=== PATIENT | female | born 1990 | race African-American/Black ===

== ENCOUNTER 2016-06-12 20:16 | Emergency (ER) | payer OTHER ==
[~2016-06-12] VITALS: Ht 162.6 cm; Wt 65.0 kg
[~2016-06-12 20:16] MED LIST: FERR325T PO; LABE100 PO
[2016-06-12 20:21] VITALS: BP 136/71; PULSE 102; RESP 16; TEMP 100.1; O2SAT 100
--- NOTE | 2016-06-12 20:32 | PD ---
Physical Exam Time Seen by Provider: 20:28 Narrative 26yp F c/o R lower toothpain x 2days w/ onset of R sided facial swelling today. Denies difficulty swallowing or airway edema. Reports vomiting twice today. Richard fever at home, but has fever 100.1 in ER. Patient stable. Patient seen in triage. Awaiting bed placement. Data Data Last Documented VS Vital Signs Date Time Temp Pulse Resp B/P Pulse Ox O2 Delivery O2 Flow Rate FiO2 06/12/16 20:21 100.1 102 16 136/71 100 Room Air MDM Supervised Visit with MONICA: Agnes Iniguez Jun 12, 2016 20:32
[2016-06-12] MEDS ORDERED: SODIUM CHLOR 0.9% 1000 ML INJ 1,000 ML IV SCH (21:31)
[2016-06-12 21:34] VITALS: BP 142/80; PULSE 79; RESP 16; TEMP 99.7; O2SAT 100
--- NOTE | 2016-06-12 21:41 | PD ---
HPI Chief Complaint: Oral / Dental Pain or Problem Time Seen by Provider: 21:37 Travel History International Travel<30 days: No Contact w/Intl Traveler<30days: No Traveled to known affect area: No History of Present Illness HPI Patient comes in complaining of right-sided dental pain that began 2 days ago patient reports swelling that began earlier this evening. Patient states she is able to swallow her own saliva and denies any difficulty breathing. Patient describes pain is throbbing aching pain that radiates throughout the right side of her face. Patient's been taking ibuprofen and Tylenol for the pain with minimal relief over the past couple of days. Touching it makes the pain worse. Denies any fevers, chest pain, shortness of breath, headaches, or . Patient reports she did vomit earlier tonight times one episode. PFSH Past Medical History Hx Anticoagulant Therapy: No Cardiovascular Problems: No Chemotherapy: No Cerebrovascular Accident: No Diabetes: No Diminished Hearing: No Headaches: Yes Respiratory: No Immunizations Current: Yes Migraines: Yes Sickle Cell Disease: Yes (TRAIT) ?: Not LMP: 05/14/16 : 3 Para: 0 Miscarriage: 1 : 1 Past Surgical History Surgical History: No Previous Surgery Section: Yes (november 2015) Hysterectomy: No Other Surgery: Yes (breast biopsy/ RT BREAST BENIGN CYST 2010) Social History Alcohol Use: No Tobacco Use: No (stopped with ) Substance Use: No Allergies-Medications (Allergen,Severity, Reaction): Coded Allergies: Chocolate (Verified Allergy, Severe, Shortness of Breath, 06/12/16) Reported Meds & Prescriptions Reported Meds & Active Scripts Active Ibuprofen 800 Mg Tab 800 Mg PO Q8H PRN Clindamycin (Clindamycin HCl) 150 Mg Cap 2 Tab PO Q6H 10 Days Review of Systems Except as stated in HPI: all other systems reviewed are Neg Physical Exam Narrative GENERAL: Well-developed, well nourished, in no acute distress, and non-ill appearing. SKIN: Focused skin assessment warm and dry. HEAD: Atraumatic. Normocephalic. EYES: Pupils equal and round. EOMI. No scleral icterus. No injection or drainage. ENT: No nasal bleeding or discharge. Mucous membranes pink and moist. Patient reports tenderness over tooth #29 that is loose. There is no visible or palpable abscess. There is soft tissue swelling right lower jaw is tender to palpation. There is no induration or fluctuation noted. Floor of the mouth, submandibular, and submental are all soft palpation. Uvula is midline. Patient is able swallow her own saliva and speaking in full sentences without difficulty. NECK: Trachea midline. No cervical lymphadenopathy. Supple. No nuclear rigidity. CARDIOVASCULAR: Regular rate and rhythm. No murmur appreciated. RESPIRATORY: No accessory muscle use. No respiratory distress. Clear to auscultation. Breath sounds equal bilaterally. MUSCULOSKELETAL: No obvious deformities. No clubbing. No cyanosis. No edema. Full range of motion. NEUROLOGICAL: Awake and alert. No obvious cranial nerve deficits. Motor grossly within normal limits. Normal speech. PSYCHIATRIC: Appropriate mood and affect; insight and judgment normal. Data Data Last Documented VS Vital Signs Date Time Temp Pulse Resp B/P Pulse Ox O2 Delivery O2 Flow Rate FiO2 06/12/16 21:34 99.7 79 16 142/80 100 Room Air Orders Basic Metabolic Panel (Bmp) (06/12/16 21:31) Complete Blood Count With Diff (06/12/16 21:31) Prothrombin Time / Inr (Pt) (06/12/16 21:31) Act Partial Throm Time (Ptt) (06/12/16 21:31) Iv Access Insert/Monitor (06/12/16 21:31) Ecg Monitoring (06/12/16 21:31) Oximetry (06/12/16 21:31) Morphine Inj (Morphine Inj) (06/12/16 21:45) Ondansetron Inj (Zofran Inj) (06/12/16 21:45) Sodium Chlor 0.9% 1000 Ml Inj (Ns 1000 M (06/12/16 21:31) Sodium Chloride 0.9% Flush (Ns Flush) (06/12/16 21:45) Ampicillin-Sulbactam Inj (Unasyn Inj) (06/12/16 21:45) Dexamethasone Inj (Decadron Inj) (06/12/16 21:45) Ct Soft Tiss Neck W Iv Cont (06/12/16 ) Iohexol 350 Inj (Omnipaque 350 Inj) (06/12/16 21:55) Acetamin-Hydrocod 325-5 Mg ([place] 5-325 (06/12/16 23:15) Labs Laboratory Tests Test 06/12/16 21:35 White Blood Count 18.8 TH/MM3 Red Blood Count 4.54 MIL/MM3 Hemoglobin 11.5 GM/DL Hematocrit 33.4 % Mean Corpuscular Volume 73.6 FL Mean Corpuscular Hemoglobin 25.4 PG Mean Corpuscular Hemoglobin 34.5 % Concent Red Cell Distribution Width 18.4 % Platelet Count 253 TH/MM3 Mean Platelet Volume 8.8 FL Neutrophils (%) (Auto) 88.0 % Lymphocytes (%) (Auto) 5.3 % Monocytes (%) (Auto) 6.1 % Eosinophils (%) (Auto) 0.0 % Basophils (%) (Auto) 0.6 % Neutrophils # (Auto) 16.5 TH/MM3 Lymphocytes # (Auto) 1.0 TH/MM3 Monocytes # (Auto) 1.1 TH/MM3 Eosinophils # (Auto) 0.0 TH/MM3 Basophils # (Auto) 0.1 TH/MM3 CBC Comment DIFF FINAL Differential Comment Prothrombin Time 11.8 SEC Prothromb Time International 1.1 RATIO Ratio Activated Partial 30.6 SEC Thromboplast Time Sodium Level 137 MEQ/L Potassium Level 3.5 MEQ/L Chloride Level 102 MEQ/L Carbon Dioxide Level 25.6 MEQ/L Anion Gap 9 MEQ/L Blood Urea Nitrogen 10 MG/DL Creatinine 0.75 MG/DL Estimat Glomerular Filtration 115 ML/MIN Rate Random Glucose 94 MG/DL Calcium Level 8.9 MG/DL MDM Medical Decision Making Medical Screen Exam Complete: Yes Emergency Medical Condition: Yes Differential Diagnosis Dental abscess, dental infection, facial cellulitis, Baltazar's angina, other Narrative Course 1035 patient reassessed states symptoms have improved and she was feeling better. Patient denies any progression of symptoms. Patient reports she still able to swallow her own saliva and denies any difficulty breathing. Patient is comfortable being discharged home. The patient presented with dental pain. There is no fever. There is poor dentition but no evidence of drainable abscess at this time. There is no evidence of significant deep or invading abscess at this time. The patient will be placed on antibiotics and pain medication. The patient was instructed to follow up with a dentist. The patient was given the dental referral sheet. Warnings were discussed with the patient regarding worsening of infection. The patient is to return if pain worsens, develops progressive swelling or facial redness or fever. The patient agrees with plan. Patient in no obvious distress upon re-evaluation. All pertinent laboratory/ Radiology result(s) discussed with patient. Discussed patient with Dr. Rowe prior to discharge, who saw and evaluated the patient and is in agreement with plan of care and disposition. Any questions/concerns in reference to patient diagnosis/condition discussed and clarified prior to patient's discharge. Reinforced sheer importance of close follow up with patient's primary physician or primary care clinic and dentist. Instructed patient to return to ED immediately, if symptoms return/worsen. Pt showed understanding of above instructions. Further instructions and recommendations were detailed in discharge paperwork. Pt ambulated without difficulty out of ED at discharge. Diagnosis Primary Impression: Dental infection Referrals: Dentist Primary Care Physician Patient Instructions: Dental Abscess (ED), Dental Caries (ED), General Instructions Additional Instructions: Follow up here in 24 hours if symptoms are not improving. Return sooner if symptoms get worse, develop fever, difficulty swallowing, sensation of throat closing, difficulty breathing, or for other concerns Follow-up with your primary care physician and dentist as soon as possible. Rinse mouth with warm salt water gargles. Take all medication as prescribed. Return to the emergency department if symptoms get worse. Med/Other Pt SpecificInfo: Prescription(s) given Scripts Ibuprofen 800 Mg [id number] Mg PO Q8H PRN (PAIN SCALE 1 TO 10) #30 TAB Ref 0 Prov:Conchis Rowe MD 06/12/16 Clindamycin 150 Mg Cap2 Tab PO Q6H 10 Days Ref 0 Prov:Conchis Rowe MD 06/12/16 Disposition: 01 DISCHARGE HOME Condition: Stable Michael Li Jun 12, 2016 21:41
[2016-06-12] MEDS ORDERED: AMPICILLIN-SULBACTAM INJ 3 GM in SODIUM CHLORIDE 0.9% INJ 100 ML IV ONE (21:45)
[2016-06-12] MEDS ORDERED: SODIUM CHLORIDE 0.9% FLUSH 10 ML FLUSH IV FLUSH PRN (21:45)
[2016-06-12] MEDS ORDERED: MORPHINE SULFATE 4 MG/ML INJ IV PUSH ONE (21:45)
[2016-06-12] MEDS ORDERED: ONDANSETRON HCL 4 MG/2 ML VIAL IVP ONE (21:45)
[2016-06-12] MEDS ORDERED: DEXAMETHASONE SOD PHOS 20 MG/5 ML VIAL IV PUSH ONE (21:45)
[2016-06-12] MEDS ORDERED: IOHEXOL 350 MG/ML 10 ML VIAL (for RAD DIAG) IV ONE (21:55)
[2016-06-12 22:11] LABS: AUTOMATED NEUTROPHIL # 16.5 TH/MM3 (1.8-7.7); BASOPHIL # 0.1 TH/MM3 (0-0.2); BASOPHIL % 0.6 % (0.0-2.0); HEMATOCRIT 33.4 % (35.0-46.0); HEMO FLAGS DIFF FINAL; LYMPH % 5.3 % (9.0-44.0); MEAN CELL VOLUME 73.6 FL (80.0-100.0); MEAN CORPUSCULAR HEMOGLOBIN 25.4 PG (27.0-34.0); MEAN CORPUSCULAR HGB CONC 34.5 % (32.0-36.0); MONO % 6.1 % (0.0-8.0); PLATELET COUNT 253 TH/MM3 (150-450); RED BLOOD COUNT 4.54 MIL/MM3 (4.00-5.30); RED CELL DISTRIBUTION WIDTH 18.4 % (11.6-17.2); WHITE BLOOD COUNT 18.8 TH/MM3 (4.0-11.0)
--- NOTE | 2016-06-12 22:12 | RADRPT ---
EXAM DATE/TIME: 06/12/2016 21:45 [facility] COMPARISON: No previous studies available for comparison. INDICATIONS : Tooth pain with right jaw swelling and fever. IV CONTRAST: 69 cc Omnipaque 350 (iohexol) IV RADIATION DOSE: 13.60 CTDIvol (mGy) MEDICAL HISTORY : None SURGICAL HISTORY : section. ENCOUNTER: Initial ACUITY: 2 days PAIN SCALE: 8/10 LOCATION: Right facial TECHNIQUE: Volumetric scanning of the neck was performed. Using automated exposure control and adjustment of th e mA and/or kV according to patient size, radiation dose was kept as low as reasonably achievable to obtain optimal diagnostic quality images. FINDINGS: Nasopharynx, oropharynx, hypopharynx and lower zone unremarkable. Thyroid unremarkable. The parotid a nd submandibular glands are normal in appearance. Visualized lungs are clear. Mastoid air cells and p aranasal sinuses are well aerated. There are no fractures. No destructive osseous lesions are seen. T here is streak artifact from dental hardware. There are small periapical cysts involving the first ri ght mandibular molar. There is extensive subcutaneous stranding and edema of the right lateral facial soft tissues lateral to the mandible. No organized fluid collections are seen to suggest abscess at this time. There is reactive adenopathy in the submandibular region. CONCLUSION: Extensive inflammatory changes seen along the right mandible without focal abscess in the soft tissue s. Dental disease. Dimitris Lewis MD on June 12, 2016 at 22:06 Board Certified Radiologist. This report was verified electronically.
[2016-06-12 22:23] LABS: APTT (PATIENT) 30.6 SEC (24.3-30.1); INTERNATIONAL NORMALIZED RATIO 1.1 RATIO; PROTHROMBIN TIME - PATIENT 11.8 SEC (9.8-11.6)
[2016-06-12 22:30] LABS: BICARBONATE 25.6 MEQ/L (21.0-32.0); POTASSIUM 3.5 MEQ/L (3.5-5.1)
[2016-06-12] MEDS ORDERED: CLIN1CAP5 PO (22:39)
[2016-06-12] MEDS ORDERED: IBUP800T23 PO (22:39)
--- NOTE | 2016-06-12 23:00 | PD ---
Physical Exam Narrative General: The patient is a well-developed well-nourished female in no acute distress. Head and Neck exam: Head is normocephalic atraumatic. Eyes: EOMI, pupils are equal round and reactive to light. Nose: Midline septum with pink mucous membranes Mouth: Dentition is remarkable for dental decay, gingival inflammation and edema surrounding teeth along the right mandible. Moist mucus membranes. Posterior oropharynx is not erythematous. No tonsillar hypertrophy. Uvula midline. Airway patent. No swelling noted underneath the tongue. Neck: The submandibular area is swollen, tender to palpation. No nuchal rigidity. No thyromegaly. Cardiovascular: Regular rate and rhythm without murmurs, gallops, or rubs. Lungs: Clear to auscultation bilaterally. No wheezes, rhonchi, or rales. Abdomen: Soft, without tenderness to palpation in all 4 quadrants of the abdomen. No guarding, rebound, or rigidity. Extremities: No clubbing, cyanosis, or edema. Data Data Last Documented VS Vital Signs Date Time Temp Pulse Resp B/P Pulse Ox O2 Delivery O2 Flow Rate FiO2 06/12/16 21:34 99.7 79 16 142/80 100 Room Air Orders Basic Metabolic Panel (Bmp) (06/12/16 21:31) Complete Blood Count With Diff (06/12/16 21:31) Prothrombin Time / Inr (Pt) (06/12/16 21:31) Act Partial Throm Time (Ptt) (06/12/16 21:31) Iv Access Insert/Monitor (06/12/16 21:31) Ecg Monitoring (06/12/16 21:31) Oximetry (06/12/16 21:31) Morphine Inj (Morphine Inj) (06/12/16 21:45) Ondansetron Inj (Zofran Inj) (06/12/16 21:45) Sodium Chlor 0.9% 1000 Ml Inj (Ns 1000 M (06/12/16 21:31) Sodium Chloride 0.9% Flush (Ns Flush) (06/12/16 21:45) Ampicillin-Sulbactam Inj (Unasyn Inj) (06/12/16 21:45) Dexamethasone Inj (Decadron Inj) (06/12/16 21:45) Ct Soft Tiss Neck W Iv Cont (06/12/16 ) Iohexol 350 Inj (Omnipaque 350 Inj) (06/12/16 21:55) Labs Laboratory Tests Test 06/12/16 21:35 White Blood Count 18.8 TH/MM3 Red Blood Count 4.54 MIL/MM3 Hemoglobin 11.5 GM/DL Hematocrit 33.4 % Mean Corpuscular Volume 73.6 FL Mean Corpuscular Hemoglobin 25.4 PG Mean Corpuscular Hemoglobin 34.5 % Concent Red Cell Distribution Width 18.4 % Platelet Count 253 TH/MM3 Mean Platelet Volume 8.8 FL Neutrophils (%) (Auto) 88.0 % Lymphocytes (%) (Auto) 5.3 % Monocytes (%) (Auto) 6.1 % Eosinophils (%) (Auto) 0.0 % Basophils (%) (Auto) 0.6 % Neutrophils # (Auto) 16.5 TH/MM3 Lymphocytes # (Auto) 1.0 TH/MM3 Monocytes # (Auto) 1.1 TH/MM3 Eosinophils # (Auto) 0.0 TH/MM3 Basophils # (Auto) 0.1 TH/MM3 CBC Comment DIFF FINAL Differential Comment Prothrombin Time 11.8 SEC Prothromb Time International 1.1 RATIO Ratio Activated Partial 30.6 SEC Thromboplast Time Sodium Level 137 MEQ/L Potassium Level 3.5 MEQ/L Chloride Level 102 MEQ/L Carbon Dioxide Level 25.6 MEQ/L Anion Gap 9 MEQ/L Blood Urea Nitrogen 10 MG/DL Creatinine 0.75 MG/DL Estimat Glomerular Filtration 115 ML/MIN Rate Random Glucose 94 MG/DL Calcium Level 8.9 MG/DL [facility] Medical Record Reviewed: Yes Supervised Visit with MONICA: No Narrative Course I, Dr. Rowe, have reviewed the advance practice practitioner's documentation and am in agreement, met with the patient face to face, made the diagnosis, and the medical decision making was done by me. The patient was initially evaluated by Michael. Please see his complete history and physical *My assessment and Findings: The patient is a 26-year-old female who presents to [facility] emergency Department with a history of pain along the teeth involving the right lower jaw that began a few days ago. She reports that since yesterday she developed swelling along that side. She reports that she did make an appointment with the [facility] dentist for tomorrow, however the pain became more severe and she decided to come to the emergency department for treatment. The patient's examination is remarkable for swelling along the right submandibular area, gingival inflammation and edema along the right mandible with some decay of a right mandibular molar noted. The patient had blood work sent for analysis, IV access was obtained and the patient was given Decadron and Unasyn. The patient on reexamination reportedly was feeling improved. CT scan of the neck showed extensive soft tissue swelling and inflammation along the right mandible with dental decay, no denise abscess formation. The patient was instructed regarding the importance of following up with the dentist tomorrow as previously scheduled. The patient will be discharged home with a prescription for pain medication and antibiotic. Diagnosis Primary Impression: Dental infection Referrals: Dentist 1 day Primary Care Physician Patient Instructions: General Instructions, Dental Abscess (ED), Dental Caries (ED) Departure Forms: Tests/Procedures Additional Instruction: Follow up here in 24 hours if symptoms are not improving. Return sooner if symptoms get worse, develop fever, difficulty swallowing, sensation of throat closing, difficulty breathing, or for other concerns Follow-up with your primary care physician and dentist as soon as possible. Rinse mouth with warm salt water gargles. Take all medication as prescribed. Return to the emergency department if symptoms get worse. Scripts Ibuprofen 800 Mg [id number] Mg PO Q8H PRN (PAIN SCALE 1 TO 10) #30 TAB Ref 0 Prov:Conchis Rowe MD 06/12/16 Clindamycin 150 Mg Cap2 Tab PO Q6H 10 Days Ref 0 Prov:Conchis Rowe MD 06/12/16 Disposition: 01 DISCHARGE HOME Condition: Stable Conchis Rowe MD Jun 12, 2016 23:00
[2016-06-12] MEDS ORDERED: ACETAMINOPHEN/HYDROcodone 325 MG/5 MG TAB PO ONE (23:15)
== END 2016-06-12 23:20 | disposition home or self-care (01) ==
LOC: NEPC 20:16
DX: K04.7 Periapical abscess without sinus (principal)
CPT/HCPCS: 70491; 80048; 85025; 85610; 85730; 96365; 96375; 99283; J0295; J1100; J2270; J2405; J7030; Q9967

== ENCOUNTER 2016-09-15 10:36 | Emergency (ER) | payer OTHER ==
[~2016-09-15] VITALS: Ht 162.6 cm; Wt 65.0 kg
[~2016-09-15 10:36] MED LIST changes: +CLIN1CAP5 PO; -FERR325T PO; +IBUP800T23 PO; -LABE100 PO
[2016-09-15 10:39] VITALS: BP 143/67; PULSE 63; RESP 20; TEMP 98.1; O2SAT 100
--- NOTE | 2016-09-15 10:52 | PD ---
HPI Chief Complaint: Flank/Kidney Pain Time Seen by Provider: 10:52 Travel History International Travel<30 days: No Contact w/Intl Traveler<30days: No Traveled to known affect area: No History of Present Illness HPI 26-year-old female came to the emergency room with history of pelvic pain for past 3 days. Patient initially thought this was her gas pain which she frequently gets. However when it did not get better and today has been worse she decided to come to the emergency room. She does look uncomfortable. Vital signs are otherwise stable. No history of nausea vomiting. No history of fever or chills. No history of vaginal discharge as per the patient. No history of dysuria. PFSH Past Medical History Narrative Medical List of her past medical, surgical, social and family history is reviewed from the nursing note. Hx Anticoagulant Therapy: No Cardiovascular Problems: No Chemotherapy: No Cerebrovascular Accident: No Diabetes: No Diminished Hearing: No Headaches: Yes Respiratory: No Immunizations Current: Yes Migraines: Yes Sickle Cell Disease: Yes (TRAIT) ?: Not LMP: 09/09/16 : 3 Para: 0 Miscarriage: 1 : 1 Past Surgical History Section: Yes (november 2015) Hysterectomy: No Other Surgery: Yes (breast biopsy/ RT BREAST BENIGN CYST 2010) Social History Alcohol Use: No Tobacco Use: No (stopped with ) Substance Use: No Allergies-Medications (Allergen,Severity, Reaction): Coded Allergies: Chocolate (Verified Allergy, Severe, Shortness of Breath, 09/15/16) Comments List of her allergies reviewed from the nursing note. Reported Meds & Prescriptions Reported Meds & Active Scripts Active Macrobid (Nitrofurantoin Monoh/Nitrofur Macro) 100 Mg Cap 100 Mg PO BID 10 Days Flagyl (Metronidazole) 250 Mg Tab 250 Mg PO TID 7 Days Narrative Medication List of her home medications reviewed from the nursing note. Review of Systems Except as stated in HPI: all other systems reviewed are Neg Physical Exam Narrative GENERAL: Awake, alert, comfortable SKIN: Focused skin assessment warm/dry. HEAD: Atraumatic. Normocephalic. EYES: Pupils equal and round. No scleral icterus. No injection or drainage. ENT: No nasal bleeding or discharge. Mucous membranes pink and moist. NECK: Trachea midline. No JVD. CARDIOVASCULAR: Regular rate and rhythm. No murmur appreciated. RESPIRATORY: No accessory muscle use. Clear to auscultation. Breath sounds equal bilaterally. GASTROINTESTINAL: Abdomen soft, pelvic and bilateral adnexal tenderness, nondistended. Hepatic and splenic margins not palpable. : External inspection was within normal limit. Pelvic exam performed with speculum showed yellowish discharge that was not foul-smelling. Swabs were collected. Patient had positive CMT and right adnexal tenderness. MUSCULOSKELETAL: No obvious deformities. No clubbing. No cyanosis. No edema. NEUROLOGICAL: Awake and alert. No obvious cranial nerve deficits. Motor grossly within normal limits. Normal speech. PSYCHIATRIC: Appropriate mood and affect; insight and judgment normal. Data Data Last Documented VS Vital Signs Date Time Temp Pulse Resp B/P Pulse Ox O2 Delivery O2 Flow Rate FiO2 09/15/16 13:24 67 18 128/62 99 09/15/16 10:39 98.1 Room Air Orders Gc And Chlamydia Pcr (09/15/16 11:02) Wet Prep Profile (09/15/16 11:02) Ua Includes Microscopic (09/15/16 11:02) Ed Urine Pregnancytest Poc (09/15/16 11:02) Ibuprofen (Motrin) (09/15/16 11:15) Nitrofurantoin Monohyd Macrocr (Macrobid (09/15/16 11:45) Metronidazole (Flagyl) (09/15/16 12:00) Azithromycin Powd Pack (Zithromax Powd P (09/15/16 12:00) Ceftriaxone Inj (Rocephin Inj) (09/15/16 12:00) Lidocaine 1% Inj (Xylocaine 1% Inj) (09/15/16 12:15) Labs Laboratory Tests Test 09/15/16 09/15/16 11:00 11:50 Urine Color YELLOW Urine Turbidity HAZY Urine pH 6.0 Urine Specific [place] 1.025 Urine Protein TRACE mg/dL Urine Glucose (UA) NEG mg/dL Urine Ketones NEG mg/dL Urine Occult Blood NEG Urine Nitrite NEG Urine Bilirubin NEG Urine Urobilinogen LESS THAN 2.0 MG/DL Urine Leukocyte Esterase LARGE Urine RBC 6 /hpf Urine WBC 117 /hpf Urine Squamous Epithelial 7 /hpf Cells Urine Bacteria MOD /hpf Urine Mucus FEW /lpf Microscopic Urinalysis Comment Clue Cells (Wet Prep) NONE SEEN Vaginal Trichomonas (Wet Prep) NONE SEEN Vaginal Yeast (Wet Prep) NONE SEEN Chlamydia trachomatis DNA NOT DETECTED (PCR) Neisseria gonorrhoeae DNA NOT DETECTED (PCR) MDM Medical Decision Making Medical Screen Exam Complete: Yes Emergency Medical Condition: Yes Medical Record Reviewed: Yes Differential Diagnosis PID, cystitis Narrative Course 12:02 PM patient was given Macrobid for her UTI. I also gave her IM ceftriaxone and by mouth Flagyl and by mouth Zithromax for the PID. Patient will go home on prescription. She understands the instructions that I have given to her. Procedures EKG Prior to Arrival: No Diagnosis Primary Impression: UTI (urinary tract infection) Qualified Code: N39.0 - Urinary tract infection without hematuria, site unspecified Additional Impression: PID (acute pelvic inflammatory disease) Referrals: Primary Care Physician Additional Instructions: Please follow-up with your primary care if the symptoms do not get better after completion of treatment. Return to the ER if the condition worsens. Take the medications as per the prescription direction. You will receive a phone call if your pelvic cultures were positive for GC and/or chlamydia. In which case her partner will need to be treated as well. No unprotected intercourse for next 3 weeks. You can take [id number] Motrin/Tylenol/Advil/ibuprofen for your pain. Med/Other Pt SpecificInfo: Prescription(s) given Scripts Nitrofurantoin Monohydrate Macrocrystals (Macrobid)100 Mg [id number] Mg PO BID 10 Days Ref 0 Prov:David Reynoso MD 09/15/16 Metronidazole (Flagyl)250 Mg [id number] Mg PO TID 7 Days Ref 0 Prov:David Reynoso MD 09/15/16 Disposition: 01 DISCHARGE HOME Condition: Stable David Reynoso MD Sep 15, 2016 10:52
[2016-09-15] MEDS ORDERED: IBUPROFEN 600 MG TAB PO ONE (11:15)
[2016-09-15 11:38] LABS: BACTERIA, URINE MOD /hpf; BLOOD, URINE NEG (NEG); GLUCOSE,URINE NEG (NEG); KETONE, URINE NEG (NEG); MUCUS URINE FEW /lpf (OCC); NITRITE,URINE NEG (NEG); SQUAMOUS EPITHELIAL CELL URINE 7 /hpf (0-5); URINE COLOR YELLOW (YELLW/STRAW)
[2016-09-15] MEDS ORDERED: NITROFURANTOIN MONOHYD MACROCR 100 MG CAP PO ONE (11:45)
[2016-09-15] MEDS ORDERED: METR250 PO (11:58)
[2016-09-15] MEDS ORDERED: MACR100C2 PO (11:58)
[2016-09-15] MEDS ORDERED: cefTRIAXone 250 MG VIAL IM ONE (12:00)
[2016-09-15] MEDS ORDERED: metroNIDAZOLE 500 MG TAB PO ONE (12:00)
[2016-09-15] MEDS ORDERED: AZITHROMYCIN PWD FOR SUSP 1 GM PACKET PO ONE (12:00)
[2016-09-15] MEDS ORDERED: LIDOCAINE HCL 1% 30 ML VIAL INFIL ONE (12:15)
[2016-09-15 13:24] VITALS: BP 128/62
[2016-09-15 14:20] LABS: CHLAMYDIA PCR NOT DETECTED (NOT DETECT); NEISSERIA PCR NOT DETECTED (NOT DETECT)
== END 2016-09-15 13:24 | disposition home or self-care (01) ==
LOC: NEPD 10:36
DX: N39.0 Urinary tract infection, site not specified (principal); N73.0 Acute parametritis and pelvic cellulitis
CPT/HCPCS: 81001; 84703; 87210; 87491; 87591; 96372; 99284; J0696

== ENCOUNTER 2017-01-26 09:58 | Emergency (ER) | payer OTHER ==
[~2017-01-26] VITALS: Ht 165.1 cm; Wt 61.4 kg
[~2017-01-26 09:58] MED LIST changes: -CLIN1CAP5 PO; -IBUP800T23 PO; +MACR100C2 PO; +METR250 PO
[2017-01-26 10:02] VITALS: BP 142/71; PULSE 77; RESP 16; TEMP 98.9; O2SAT 100
[2017-01-26] MEDS ORDERED: KETOROLAC TROMETHAMINE 30 MG/ML (IVP) VIAL IV PUSH ONE (10:45)
[2017-01-26] MEDS ORDERED: PROCHLORPERAZINE INJ 10 MG/2 ML VIAL IV PUSH ONE (10:45)
[2017-01-26] MEDS ORDERED: SODIUM CHLOR 0.9% 1000 ML INJ 1,000 ML IV ONE (10:45)
[2017-01-26] MEDS ORDERED: diphenhydrAMINE HCL 50 MG/ML VIAL IV PUSH ONE (10:45)
[2017-01-26 11:03] LABS: AUTOMATED NEUTROPHIL # 6.6 TH/MM3 (1.8-7.7); BASOPHIL # 0.2 TH/MM3 (0-0.2); BASOPHIL % 2.7 % (0.0-2.0); EOSINOPHIL % 0.2 % (0.0-4.0); HEMATOCRIT 34.1 % (35.0-46.0); HEMO FLAGS DIFF FINAL; LYMPHOCYTE # 1.3 TH/MM3 (1.0-4.8); MEAN CELL VOLUME 79.3 FL (80.0-100.0); MEAN CORPUSCULAR HEMOGLOBIN 25.4 PG (27.0-34.0); MONO % 6.2 % (0.0-8.0); NEUT % 75.9 % (16.0-70.0); PLATELET COUNT 288 TH/MM3 (150-450); RED CELL DISTRIBUTION WIDTH 16.9 % (11.6-17.2); WHITE BLOOD COUNT 8.6 TH/MM3 (4.0-11.0)
[2017-01-26 11:04] LABS: BLOOD, URINE SMALL (NEG); GLUCOSE,URINE NEG (NEG); KETONE, URINE NEG (NEG); NITRITE,URINE POS (NEG)
[2017-01-26 11:06] VITALS: BP 99/45; PULSE 60; RESP 20; O2SAT 100
[2017-01-26 11:11] LABS: CHLORIDE 104 MEQ/L (98-107); POTASSIUM 3.9 MEQ/L (3.5-5.1); SODIUM (NA) 137 MEQ/L (136-145)
[2017-01-26 11:14] LABS: ANION GAP 7 MEQ/L (5-15); BICARBONATE 26.5 MEQ/L (21.0-32.0)
[2017-01-26 11:15] LABS: BACTERIA, URINE MANY /hpf; BLOOD UREA NITROGEN 10 MG/DL (7-18); METHOD OF COLLECTION CLEAN CATCH; URINE COLOR YELLOW (YELLW/STRAW)
[2017-01-26 11:16] LABS: COMMENT (UR) CULTURE INDICATED; CULTURE IF INDICATED CULTURE INDICATED
[2017-01-26 11:18] LABS: ALT (GPT) 15 U/L (10-53); AST (GOT) 13 U/L (15-37); GLOMERULAR FILTRATION RATE 108 ML/MIN (>89)
[2017-01-26 11:19] LABS: TOTAL BILIRUBIN ADULT 0.3 MG/DL (0.2-1.0)
[2017-01-26 11:20] LABS: ALKALINE PHOSPHATASE 112 U/L (45-117)
[2017-01-26 11:54] VITALS: BP 105/47; PULSE 69; RESP 20; O2SAT 100
[2017-01-26] MEDS ORDERED: ACETAMIN 325 MG/BUTALBITAL 50 MG/CAFFEINE 40 MG TAB PO ONE (12:00)
[2017-01-26 12:32] VITALS: BP 95/51; PULSE 74; RESP 20; O2SAT 98
[2017-01-26] MEDS ORDERED: BUTA1CAP PO (12:33)
[2017-01-26] MEDS ORDERED: BACT800T5 PO (12:33)
--- NOTE | 2017-01-26 12:33 | PD ---
HPI Chief Complaint: Headache Time Seen by Provider: 10:32 Travel History International Travel<30 days: No Contact w/Intl Traveler<30days: No Traveled to known affect area: No History of Present Illness HPI Is a 26-year-old female, history of migraines, who comes in complaining of a migraine headache. She says it has been going on for the past 3 days. She says that she has tried taking Excedrin, but this has not helped. She also complains of some mid back pain. Or chills. She says she's had some blurred vision, but this is typical of her migraine speech she also reports some nausea , but no vomiting. She says her pain is typical of her migraine pain. PFSH Past Medical History Hx Anticoagulant Therapy: No Cardiovascular Problems: No Chemotherapy: No Cerebrovascular Accident: No Diabetes: No Diminished Hearing: No Headaches: Yes Respiratory: No Immunizations Current: Yes Migraines: Yes Sickle Cell Disease: Yes (TRAIT) ?: Not : 3 Para: 0 Miscarriage: 1 : 1 Past Surgical History Section: Yes (november 2015) Hysterectomy: No Other Surgery: Yes (breast biopsy/ RT BREAST BENIGN CYST 2010) Social History Alcohol Use: No Tobacco Use: Yes (stopped with ) Substance Use: No Allergies-Medications (Allergen,Severity, Reaction): Coded Allergies: chocolate flavor (Unverified Allergy, Severe, Shortness of Breath, 01/26/17 ) Reported Meds & Prescriptions Reported Meds & Active Scripts Active Bactrim DS (Sulfamethoxazole-Trimethoprim) 800-160 Mg Tab 1 Tab PO BID Fioricet (Holwtmjdkw-Mmhxxvpqawrpc-Ujuklgno) 50-300-40 Mg Cap 1 Cap PO Q4H PRN Review of Systems Except as stated in HPI: all other systems reviewed are Neg General / Constitutional: No: Fever, Chills Eyes: Positive: Blurred Vision HENT: Positive: Headaches Cardiovascular: No: Chest Pain or Discomfort Respiratory: No: Shortness of Breath Gastrointestinal: Positive: Nausea, No: Vomiting Genitourinary: Positive: Flank Pain Skin: No Rash, No Change in Pigmentation Neurologic: No: Weakness, Dizziness Physical Exam Narrative GENERAL: Awake and alert, in no acute distress. SKIN: Focused skin assessment warm/dry. HEAD: Atraumatic. Normocephalic. EYES: Pupils equal and round and reactive. No scleral icterus. Extraocular movements intact. ENT: Mucous membranes pink and moist. NECK: Trachea midline. No JVD. CARDIOVASCULAR: Regular rate and rhythm. No murmur appreciated. RESPIRATORY: No accessory muscle use. Clear to auscultation. Breath sounds equal bilaterally. GASTROINTESTINAL: Abdomen soft, non-tender, nondistended. MUSCULOSKELETAL: No obvious deformities. No clubbing. No cyanosis. No edema. NEUROLOGICAL: Awake and alert. No obvious cranial nerve deficits. Motor grossly within normal limits. Normal speech. PSYCHIATRIC: Appropriate mood and affect; insight and judgment normal. Data Data Last Documented VS Vital Signs Date Time Temp Pulse Resp B/P (MAP) Pulse Ox O2 Delivery O2 Flow Rate FiO2 01/26/17 12:39 01/26/17 12:32 74 20 98 01/26/17 10:02 98.9 Orders Orders Iv Access Insert/Monitor (01/26/17 10:45) Complete Blood Count With Diff (01/26/17 10:45) Comprehensive Metabolic Panel (01/26/17 10:45) Urinalysis - C+S If Indicated (01/26/17 10:45) Ed Urine Pregnancytest Poc (01/26/17 10:45) Prochlorperazine Inj (Compazine Inj) (01/26/17 10:45) Diphenhydramine Inj (Benadryl Inj) (01/26/17 10:45) Ketorolac Inj (Toradol Inj) (01/26/17 10:45) Sodium Chlor 0.9% 1000 Ml Inj (Ns 1000 M (01/26/17 10:45) Urine Culture (01/26/17 10:55) Oexm-Folvq-Hpdf 325-50-40 Mg (Fioricet 3 (01/26/17 12:00) Ed Discharge Order (01/26/17 12:34) Labs Laboratory Tests Test 01/26/17 10:55 White Blood Count 8.6 TH/MM3 Red Blood Count 4.30 MIL/MM3 Hemoglobin 10.9 GM/DL Hematocrit 34.1 % Mean Corpuscular Volume 79.3 FL Mean Corpuscular Hemoglobin 25.4 PG Mean Corpuscular Hemoglobin Concent 32.0 % Red Cell Distribution Width 16.9 % Platelet Count 288 TH/MM3 Mean Platelet Volume 8.3 FL Neutrophils (%) (Auto) 75.9 % Lymphocytes (%) (Auto) 15.0 % Monocytes (%) (Auto) 6.2 % Eosinophils (%) (Auto) 0.2 % Basophils (%) (Auto) 2.7 % Neutrophils # (Auto) 6.6 TH/MM3 Lymphocytes # (Auto) 1.3 TH/MM3 Monocytes # (Auto) 0.5 TH/MM3 Eosinophils # (Auto) 0.0 TH/MM3 Basophils # (Auto) 0.2 TH/MM3 CBC Comment DIFF FINAL Differential Comment Urine Collection Type CLEAN CATCH Urine Color YELLOW Urine Turbidity MOD Urine pH 6.0 Urine Specific [place] 1.020 Urine Protein NEG mg/dL Urine Glucose (UA) NEG mg/dL Urine Ketones NEG mg/dL Urine Occult Blood SMALL Urine Nitrite POS Urine Bilirubin NEG Urine Leukocyte Esterase TRACE Urine RBC 4-9 /hpf Urine WBC 3-5 /hpf Urine Squamous Epithelial Cells 6-8 /hpf Urine Bacteria MANY /hpf Microscopic Urinalysis Comment CULTURE INDICATED Urine Collection Time 10:55 Blood Urea Nitrogen 10 MG/DL Creatinine 0.79 MG/DL Random Glucose 84 MG/DL Total Protein 7.0 GM/DL Albumin 3.5 GM/DL Calcium Level 8.7 MG/DL Alkaline Phosphatase 112 U/L Aspartate Amino Transf (AST/SGOT) 13 U/L Alanine Aminotransferase (ALT/SGPT) 15 U/L Total Bilirubin 0.3 MG/DL Sodium Level 137 MEQ/L Potassium Level 3.9 MEQ/L Chloride Level 104 MEQ/L Carbon Dioxide Level 26.5 MEQ/L Anion Gap 7 MEQ/L Estimat Glomerular Filtration Rate 108 ML/MIN MDM Medical Decision Making Medical Screen Exam Complete: Yes Emergency Medical Condition: Yes Medical Record Reviewed: Yes Differential Diagnosis Migraine versus dehydration versus tension headache versus UTI Narrative Course Patient is a 26-year-old female who comes in complaining of migraine headache. Exam shows no neurologic abnormalities. IV established, labs sent. Labs show no acute abnormalities. Urinalysis is positive for UTI. Patient given IV fluids, Compazine, Benadryl, Toradol. She reports some improvement, but still has a headache. She was given a dose of Fioricet. She'll be discharged with prescriptions for Fioricet as well as Bactrim for the UTI. She is advised follow-up with a primary doctor. Advised to return to the ED as needed for any worsening symptoms. Diagnosis Primary Impression: UTI (urinary tract infection) Qualified Codes: N30.00 - Acute cystitis without hematuria Additional Impression: Headache Qualified Codes: R51 - Headache Patient Instructions: Acute Headache (ED), General Instructions, Urinary Tract Infection in Women (ED) Additional Instructions: Drink plenty of fluids. Take Fioricet as needed for headaches. Take all of your antibiotics. Return to the emergency department as needed for any worsening symptoms. Scripts Sulfamethoxazole-Trimethoprim (Bactrim DS) 800-160 Mg Tab 1 TAB PO BID for Infection, #10 TAB 0 Refills Prov: Irene Couch MD 01/26/17 Upoyzdfteh-Xjdskwaesxmeg-Czuignux (Fioricet) 50-300-40 Mg Cap 1 CAP PO Q4H Y for HEADACHE, #10 CAP 0 Refills Prov: Irene Couch MD 01/26/17 Disposition: 01 DISCHARGE HOME Condition: Stable Irene Couch MD Jan 26, 2017 12:33
== END 2017-01-26 12:46 | disposition home or self-care (01) ==
LOC: PHED 09:58
DX: N30.00 Acute cystitis without hematuria (principal); R51 Headache; B96.20 Unspecified Escherichia coli [E. coli] as the cause of diseases classified elsewhere
CPT/HCPCS: 80053; 81001; 84703; 85025; 87077; 87086; 87186; 96361; 96374; 96375; 99284; J0780; J1200; J1885; J7030

== ENCOUNTER 2017-03-28 00:27 | Emergency (ER) | payer OTHER ==
[~2017-03-28] VITALS: Ht 165.1 cm; Wt 61.5 kg
[~2017-03-28 00:27] MED LIST changes: +BACT800T5 PO; +BUTA1CAP PO; -MACR100C2 PO; -METR250 PO
[2017-03-28 00:30] VITALS: BP 130/74; PULSE 75; RESP 16; TEMP 97.6; O2SAT 100
[2017-03-28] MEDS ORDERED: DEXAMETHASONE SOD PHOS 20 MG/5 ML VIAL IM ONE (01:15)
[2017-03-28] MEDS ORDERED: ORPHENADRINE INJ 60 MG/2 ML AMP IM ONE (01:15)
[2017-03-28] MEDS ORDERED: KETOROLAC TROMETHAMINE 60 MG/2 ML (IM) VIAL IM ONE (01:15)
--- NOTE | 2017-03-28 02:00 | PD ---
HPI Chief Complaint: Back/ Neck Pain or Injury Time Seen by Provider: 00:47 Travel History International Travel<30 days: No Contact w/Intl Traveler<30days: No Traveled to known affect area: No History of Present Illness HPI Patient is a 26-year-old female presenting to the emergency department for evaluation of left neck pain. Patient states it started yesterday when she woke up. It has gotten progressively worse since that time. Patient reports the pain is a 10 out of 10, pain is exacerbated with movement, she states it feels tight. Patient states that the pain is causing her left arm to feel tingling. Patient denies any headache, nausea, vomiting, chest pain, shortness of breath. She denies any injury or trauma. Symptom onset was gradual. PFSH Past Medical History Hx Anticoagulant Therapy: No Cardiovascular Problems: No Chemotherapy: No Cerebrovascular Accident: No Diabetes: No Diminished Hearing: No Headaches: Yes Immunizations Current: Yes Migraines: Yes Sickle Cell Disease: Yes (TRAIT) ?: Not LMP: 03/15/17 : 3 Para: 0 Miscarriage: 1 : 1 Past Surgical History Section: Yes (november 2015) Hysterectomy: No Other Surgery: Yes (breast biopsy/ RT BREAST BENIGN CYST 2010) Social History Alcohol Use: No Tobacco Use: No Substance Use: No Allergies-Medications (Allergen,Severity, Reaction): Coded Allergies: chocolate flavor (Unverified Allergy, Severe, Shortness of Breath, 01/26/17 ) Reported Meds & Prescriptions Reported Meds & Active Scripts Active Bactrim DS (Sulfamethoxazole-Trimethoprim) 800-160 Mg Tab 1 Tab PO BID Fioricet (Pasdeelyib-Gsoubjhicyqqp-Bqngivka) 50-300-40 Mg Cap 1 Cap PO Q4H PRN Review of Systems Except as stated in HPI: all other systems reviewed are Neg General / Constitutional: No: Fever HENT: Positive: Neck Stiffness, No: Headaches, Congestion, Neck Pain Cardiovascular: No: Chest Pain or Discomfort Musculoskeletal: Positive: Myalgias, Cramping, Pain Physical Exam Narrative GENERAL: Well-developed, well-nourished, alert female. Appears uncomfortable, no acute distress. SKIN: Warm and dry. HEAD: Atraumatic. Normocephalic. EYES: Pupils equal and round. No scleral icterus. No injection or drainage. ENT: No nasal bleeding or discharge. Mucous membranes pink and moist. NECK: Trachea midline. No JVD. Tenderness to palpation left paraspinal musculature and cervical region. Decreased range of motion with rotation to the right. No spinal tenderness or step-off noted CARDIOVASCULAR: Regular rate and rhythm. RESPIRATORY: No accessory muscle use. Clear to auscultation. Breath sounds equal bilaterally. GASTROINTESTINAL: Abdomen soft, non-tender, nondistended. Hepatic and splenic margins not palpable. MUSCULOSKELETAL: Extremities without clubbing, cyanosis, or edema. No obvious deformities. NEUROLOGICAL: Awake and alert. No obvious cranial nerve deficits. Motor grossly within normal limits. Five out of 5 muscle strength in the arms and legs. Normal speech. PSYCHIATRIC: Appropriate mood and affect; insight and judgment normal. Data Data Last Documented VS Vital Signs Date Time Temp Pulse Resp B/P (MAP) Pulse Ox O2 Delivery O2 Flow Rate FiO2 03/28/17 00:30 97.6 75 16 130/74 (92) 100 Orders Orders Ketorolac Inj (Toradol Inj) (03/28/17 01:15) Orphenadrine Inj (Norflex Inj) (03/28/17 01:15) Dexamethasone Inj (Decadron Inj) (03/28/17 01:15) [facility] Medical Decision Making Medical Screen Exam Complete: Yes Emergency Medical Condition: Yes Interpretation(s) Vital Signs Date Time Temp Pulse Resp B/P (MAP) Pulse Ox O2 Delivery O2 Flow Rate FiO2 03/28/17 00:30 97.6 75 16 130/74 (92) 100 Differential Diagnosis Muscle spasm versus strain versus torticollis versus other Narrative Course Patient is a 26-year-old female presenting with 1 day of progressing neck pain. Exam appears consistent with cervical muscle spasm. Patient was given Toradol , Norflex, dexamethasone. Her vital signs are stable, will reassess. She was reassessed 1 hour after medication administration, she reports some improvement in her pain. Patient was advised that pain will not completely be resolved tonight, she was encouraged to take medications as directed consistently for the next 24 to 48 hours, apply warm heat to the affected area, continue gentle range of motion exercises. She was encouraged to follow-up with a primary doctor or return to emergency department for any new or worsening symptoms. Patient verbalized understanding these instructions. Patient is stable for discharge. Diagnosis Primary Impression: Cervical paraspinal muscle spasm Referrals: Primary Care Physician 2 days Patient Instructions: General Instructions, Muscle Cramp (GEN), Muscle Spasm ( ED) Additional Instructions: Apply warm heat to the affected area, continue gentle range of motion exercises , avoid exacerbating activities, avoid bed rest Take medications as directed Follow-up with your primary doctor Return to emergency department for any new or worsening symptoms Med/Other Pt SpecificInfo: Prescription(s) given Scripts Cyclobenzaprine (Flexeril) 10 Mg Tab 10 MG PO TID Y for MUSCLE SPASM, #30 TAB 0 Refills Prov: Stacie Valenzuela 03/28/17 Ibuprofen (Ibuprofen) 800 Mg Tab 800 MG PO Q6HR Y for PAIN, #40 TAB 0 Refills Prov: Stacie Valenzuela 03/28/17 Disposition: 01 DISCHARGE HOME Condition: Stable Stacie Valenzuela Mar 28, 2017 02:00
[2017-03-28] MEDS ORDERED: IBUP1TAB7 PO (02:21)
[2017-03-28] MEDS ORDERED: CYCL10TA PO (02:21)
[2017-03-28] MEDS ORDERED: oxyCODONE/ACETAMINOPHEN 5 MG/325 MG TAB PO ONE (02:30)
== END 2017-03-28 02:44 | disposition home or self-care (01) ==
LOC: NEPD 00:27
DX: M62.830 Muscle spasm of back (principal)
CPT/HCPCS: 96372; 99283; J1100; J1885; J2360